=== PATIENT | male | born 1975 | race African-American/Black ===

== ENCOUNTER 2019-03-01 18:26 | Emergency (ER) | payer OTHER ==
[~2019-03-01] VITALS: Ht 170.2 cm; Wt 64.0 kg
[2019-03-01 19:10] VITALS: BP 133/84
== END 2019-03-01 19:50 | disposition home or self-care (01) ==
LOC: EMS 18:27
DX: S16.1XXA Strain of muscle, fascia and tendon at neck level, initial encounter (principal); S39.012A Strain of muscle, fascia and tendon of lower back, initial encounter; V49.9XXA Car occupant (driver) (passenger) injured in unspecified traffic accident, initial encounter; Y93.89 Activity, other specified; Y92.89 Other specified places as the place of occurrence of the external cause; Y99.8 Other external cause status